=== PATIENT | female | born 1955 | race Caucasian/White ===

== ENCOUNTER 2020-06-20 09:27 | Emergency (ER) | payer MEDICARE, MEDICAID, SELFPAY ==
[2020-06-20 09:20] VITALS: BP 139/98; PULSE 64; RESP 16; TEMP 36.1; O2SAT 94
[2020-06-20 09:34] VITALS: PULSE 63
--- NOTE | 2020-06-20 09:43 | ECG_ITS ---
Measurements Intervals [place] Rate: 63 P: 265 MD: 160 QRS: 68 QRSD: 126 T: 18 QT: 443 QTc: 456 Interpretive Statements SINUS OR ECTOPIC ATRIAL RHYTHM WITH SINUS ARRHYTHMIA WITH FIRST DEGREE AV BLOCK INTRAVENTRICULAR CONDUCTION DELAY BORDERLINE ST-T WAVE ABNORMALITY- ANT/INF LEADS BASELINE ARTIFACT- I, II, AVR, AVF, V2-V3 ABNORMAL ECG Electronically Signed On 06-20-2020 10:16:35 CDT by Dexter Nguyen D.O.
[2020-06-20 09:51] VITALS: BP 125/87; PULSE 60; RESP 16; O2SAT 94
--- NOTE | 2020-06-20 09:52 | ED.WEAKNESS ---
HPI - Weakness General Chief complaint: Weakness Stated complaint: weakness x1 month Time Seen by Provider: 06/20/20 09:45 Source: patient Mode of arrival: EMS Limitations: no limitations History of Present Illness HPI Narrative: This patient is a 65 year old female who presents for evaluation of weakness. Patient states for the past 1 month she has had no appetite and decrease desire to do anything. She states that she is feeling weak and tired. She is able to drink a couple of ensures and eat a bologna sandwich daily. She denies chest pain, cough, fever, abdominal pain, nausea, vomiting or diarhea. She has no urinary symptoms. She states she experienced something like this last year and she was diagnosed with depression. She was prescribed Prozac and that helped her symptoms. She stopped taking the prozac . She has an appointment with PCP in 3 weeks. Complaint: generalized weakness Related Data Home Medications Medication Instructions Recorded Confirmed flecainide 100 mg tablet 100 mg PO Q12H 01/13/20 nifedipine 30 mg tablet,extended 30 mg PO DAILY 01/13/20 release diltiazem HCl [DILT-XR] 240 mg PO DAILY 06/20/20 metoclopramide HCl 10 mg PO BID 06/20/20 omeprazole 40 mg PO DAILY 06/20/20 warfarin [Jantoven] 2 mg PO DAILY 06/20/20 Allergies Allergy/AdvReac Type Severity Reaction Status Date / Time cephalexin Allergy Severe SWELLING, Verified 05/03/19 11:11 HYPOTENSION amoxicillin Allergy Unknown Swelling Verified 05/03/19 11:11 Review of Systems Review of Systems: All systems reviewed & are unremarkable except as noted in HPI and below Constitutional: Constitutional: Denies chills, Reports fatigue, Denies fever(s) and Reports weakness Cardiovascular: Cardiovascular: Denies chest pain, Denies rapid heart rate and Denies slow heart rate Respiratory: Respiratory: Denies cough and Denies dyspnea Gastrointestinal: Gastrointestinal: Denies abdominal pain, Denies constipation, Denies diarrhea, Denies nausea and Denies vomiting Genitourinary: Genitourinary: Denies hematuria, Denies nocturia, Denies dysuria and Denies flank pain Musculoskeletal: Musculoskeletal: Denies back pain [facility] Past Medical History Medical History (Updated 06/20/20 @ 11:01 by Eun Dale MD) Atrial fibrillation CVA (cerebral vascular accident) Hypertension Surgical History Surgical History (Updated 01/13/20 @ 14:58 by Erma Huff CMA) H/O tubal ligation Social History Social History (Updated 01/13/20 @ 14:59 by Erma Huff CMA) Smoking status: Never smoker Alcohol intake: never Gender identity (if verbalized by the patient): Female Exam Const: General: no acute distress and alert Nutritional Appearance: obese Orientation/consciousness: patient oriented x3 HENMT: Head: normocephalic and atraumatic Mouth: Yes Normal oral and palatal mucosa present, Yes lip normal and Yes oropharynx normal Throat: posterior oropharynx normal and uvula midline Eyes: Pupils: Equal, round and reactive pupils present EOM: EOMs intact bilaterally Neck: Other: posterior neck soft tissue that appears to be lipoma Chest: Chest palpation & inspection: normal inspection of the chest Resp: Effort & Inspection: normal respiratory effort and no retractions Auscultation: clear to auscultation bilaterally Cardio: Rate: regular rate Rhythm: regular rhythm Heart sounds: no murmurs GI: GI Palp: Yes Soft to palpation, No Tenderness to palpation present (GI), No Guarding due to palpation present (GI), No Rigid due to palpation and No Hernia present Back/Spine/Pelvis: Back: no CVA tenderness Skin: General skin exam: normal color Rashes: no rashes Neuro: General: patient oriented x3 and moves all extremities Extrem: General: normal to inspection Psych: Mental Status: mental status grossly normal Affect: normal affect Course Reevaluation(s) Reevaluation #1: I Discussed with patient she has been
[2020-06-20 10:18] LABS: Basophils Absolute Auto 0.1 K/mm3 (0.0-0.1); Basophils Percent Auto 0.7 % (0.2-1.2); Eosinophils Absolute Auto 0.1 K/mm3 (0-0.3); Eosinophils Percent Auto 0.9 % (0-4.4); Hemoglobin 15.8 g/dL (12.0-15.0); Immature Granulocyte Absolute 0.03 K/mm3 (0.00-0.031); Immature Granulocyte Percent A 0.3 % (0-0.5); Lymphocytes Absolute Auto 2.76 K/mm3 (0.9-3.2); Lymphocytes Percent Auto 24.9 % (18.3-44.2); Mean Corpuscular HGB Conc 32.2 g/dl (32-36); Mean Corpuscular Hemoglobin 27.8 pg (26-34); Mean Corpuscular Volume 86.3 fl (80-100); Monocytes Absolute Auto 0.9 K/mm3 (0.1-0.6); Monocytes Percent Auto 8.5 % (2.6-8.5); Neutrophils Absolute Auto 7.2 K/mm3 (1.3-6.7); Neutrophils Percent Auto 64.7 % (45.5-73.1); Platelet Count Result 321 k/mm3 (150-375); Red Blood Count 5.68 M/mm3 (4.2-5.4); Red Cell Distribution Width 14.5 % (11.5-14.5); White Blood Count 11.1 K/mm3 (4.5-10.0)
[2020-06-20 10:27] LABS: Add Urine Microscopic? YES; Appearance Urine Cloudy (Clear); Bacteria Urine Trace /hpf; Bilirubin Urine 1+ (Negative); Blood Urine Negative (Negative); Calcium Oxalate Crystals Urine Many /hpf; Color Urine Amber (Yellow); Glucose Urine UA 1+ mg/dL (Negative); Hyaline Casts Urine 50+ /lpf; Ketones Urine Negative (Negative); Leukocyte Esterase Ur 1+ LEU/UL (Negative); Mucus Urine Heavy /lpf; Nitrate Urine Negative (Negative); Protein Urine 2+ mg/dL (Negative); RBC Urine 0-2 /hpf (0-2); Specific Grav Ur 1.027 (1.001-1.035); Squamous Epithelial Cell Urine Many /hpf (Few); WBC Urine 51-75 /hpf
[2020-06-20 10:29] LABS: INR 2.2
[2020-06-20 10:43] LABS: Alanine Aminotransferase 31 U/L (4-35); Albumin Level 3.7 g/dL (3.5-5.1); Alkaline Phosphatase 96 U/L (38-126); Anion Gap 11 mmol/L (8-16); Aspartate Amino Transferase 32 U/L (14-36); Bilirubin,Total 0.5 mg/dL (0.2-1.3); Blood Urea Nitrogen 14 mg/dL (7-17); Calcium 9.1 mg/dL (8.4-10.2); Carbon Dioxide 23 mmol/L (22-30); Chloride 104 mmol/L (98-107); Estimated CRCL calculation 66 ml/min; Estimated Glomerular Filt Rate 55; Glucose 134 mg/dL (65-105); Potassium 3.5 mmol/L (3.4-5.0); Sodium 138 mmol/L (137-145)
== END 2020-06-20 11:18 | disposition home or self-care (01) ==
PROVIDERS: Emergency Provider General Practice; PCP Internal Medicine
DX: N39.0 Urinary tract infection, site not specified (principal); R53.83 Other fatigue; I48.91 Unspecified atrial fibrillation; Z79.01 Long term (current) use of anticoagulants; Z86.73 Personal history of transient ischemic attack (TIA), and cerebral infarction without residual deficits; I10 Essential (primary) hypertension; I45.9 Conduction disorder, unspecified; R94.31 Abnormal electrocardiogram [ECG] [EKG]
CPT/HCPCS: 36415; 80053; 81001; 85025; 85610; 85730; 87077; 87086; 87088; 87186; 93005; 99283

== ENCOUNTER 2025-07-08 08:09 | Outpatient (CLI) | payer MEDICARE, MEDICAID, SELFPAY ==
--- OUTSIDE RECORDS SUMMARY | 2025-07-08 08:15 | XMS_ITS | Clinical Summary ---
Author Organization [facility] Address [facility] [place] [address] Care Team Providers Care Doll Eye Setter Name Role Phone Richie Cohen MD Primary Care Provider + [phone] Allergies Active Allergy Reactions Criticality Noted Date Comments Amoxicillin Anaphylaxis High 05/16/2019 Cephalexin Syncope,Other (See comments) High Reaction: Syncope/Low BP, Throat Swelling, Medications albuterol (PROVENTIL,SHAMIR DONNELL) 2.5 mg /3 mL (0.083 %) nebulizer solution Take 2.5 mg by nebulization every 6 (six) hours as needed for wheezing Active baclofen (LIORESAL) 10 mg tablet Take 10 mg by mouth 3 (three) times a day Active benzonatate (TESSALON) 100 mg capsuleIndicatio ns:Cough Take 100 mg by mouth 3 (three) times a day as needed for cough Active cyclobenzaprine (FLEXERIL) 5 mg tablet Take 5 mg by mouth 3 (three) times a day as needed for muscle spasms Active dilTIAZem CD (CARDIZEM CD) 300 mg 24 hr capsule Take 300 mg by mouth daily Active flecainide (TAMBOCOR) 100 mg tablet Take 100 mg by mouth 2 (two) times a day Active losartan (COZAAR) 100 mg tablet Take 100 mg by mouth daily Active omeprazole (PriLOSEC) 40 mg capsule Take 40 mg by mouth daily Active pravastatin (PRAVACHOL) 40 mg tablet Take 40 mg by mouth daily Active beclomethasone (QVAR) 40 mcg/actuation inhaler Inhale 2 puffs 2 (two) times a day Rinse mouth with water after use. Do not swallow. Active metoclopramide (REGLAN) 10 mg tablet Take 10 mg by mouth 4 (four) times a day Active albuterol HFA (PROVENTIL HFA,VENTOLIN HFA,PROAIR HFA) 90 mcg/actuation inhaler Inhale 2 puffs every 6 (six) hours as needed for wheezing Active furosemide (LASIX) 40 mg tablet Take 1 tablet (40 mg total) by mouth daily Take only NEEDED for swelling 30 tablet 9 Active warfarin (COUMADIN) 4 mg tabletIndication s:atrial fibrillation Take 1 tablet (4 mg total) by mouth 3 (three) times a week TAKE Monday ONLY 12 tablet 9 Active warfarin (COUMADIN) 2 mg tabletIndication s:atrial fibrillation Take 1 tablet (2 mg total) by mouth 4 (four) times a week TAKE Monday ONLY 16 tablet 9 Active FLUoxetine (PROzac) 10 mg capsuleIndicatio ns:Generalized Anxiety Disorder Take 1 tablet/capsule (10 mg total) by mouth daily 30 tablet/capsu le 9 Active metoprolol XL (TOPROL-XL) 50 mg 24 hr tablet Take 1 tablet (50 mg total) by mouth daily 30 tablet 11 9 Active dilTIAZem XR (dilTIAZem CD) 180 mg 24 hr capsule Take 1 capsule (180 mg total) by mouth 2 (two) times a day Active lactulose solution 10 gram/15mL Active lidocaine (LMX) 4 % cream APPLY 1 APPLICATION(S) 3 TIMES A DAY BY TOPICAL ROUTE DIRECTED FOR 30 DAYS Active magnesium oxide (MAG-OX) 400 mg (241.3 mg elemental magnesium) tablet Take 1 tablet (400 mg total) by mouth 2 (two) times a day Active hydroCHLOROthiaz della (HYDRODIURIL) 25 mg tablet Take 1 tablet (25 mg total) by mouth daily Active HYDROcodone-acet aminophen (NORCO) 5-325 mg per tablet Take by mouth every 6 (six) hours as needed Active hyaluronate (ORTHOVISC) 30 mg/2 mL injection Injections given in the office by the doctor. Active fluticasone propionate (FLONASE) 50 mcg/actuation nasal spray SPRAY 1 SPRAY EVERY DAY INTO NOSE DIRECTED FOR 30 DAYS Active clonazePAM (KlonoPIN) 0.5 mg tablet Take 1 tablet (0.5 mg total) by mouth daily as needed Active docusate sodium (COLACE) 100 mg capsule Take by mouth daily as needed Active busPIRone (BUSPAR) 10 mg tablet Take by mouth every 8 (eight) hours as needed Active apixaban (Eliquis) 5 mg tablet Take 1 tablet (5 mg total) by mouth 2 (two) times a day Active calcium carbonate-vitami n D3 1500 mg (600 mg elemental) -200 units per tablet Calcium 600 + D(3) 600 mg (1,500 mg)-200 unit tablet 8 Active cetirizine (ZyrTEC) 10 mg tablet Active citalopram (CeleXA) 20 mg tablet Take 1 tablet every day by oral route as directed for 30 days. 1 Active LORazepam (ATIVAN) 1 mg tablet Active loratadine (CLARITIN) 10 mg tablet Active meclizine (ANTIVERT) 25 mg tablet Take 1 tablet (25 mg total) by mouth daily as needed Active metOLazone (ZAROXOLYN) 2.5 mg tablet metolazone 2.5 mg tablet Active mometasone (Nasonex) 50 mcg/actuation nasal spray [place] 2 sprays every day by intranasal route as needed for 30 days. 5 Active NIFEdipine (NIFEdipine XL) 30 mg 24 hr tablet Take 1 tablet (30 mg total) by mouth daily Active nystatin cream Activ e pantoprazole DR (PROTONIX) 40 mg EC tablet Take 1 tablet (40 mg total) by mouth daily Active predniSONE (DELTASONE) 10 mg tablet Prednisone 40 mg X 3 days, 30 X 3 days, 20 X 3 days 10 X 3 days then off Active umeclidinium-chad anteroL (ANORO ELLIPTA) 62.5-25 mcg/actuation blister with device Anoro Ellipta 62.5 mcg-25 mcg/actuation powder for inhalation 8 Active Active Problems Problem Noted Date Diagnosed Date Abnormal finding on mammography 03/05/2025 Anxiety 03/05/2025 Joint pain 03/05/2025 Macular degeneration 03/05/2025 Metabolic syndrome X 03/05/2025 Neck pain 03/05/2025 Pruritic disorder 03/05/2025 Rosacea 03/05/2025 Seasonal allergies 03/05/2025 Symptoms involving urinary system 03/05/2025 Hypertensive disorder 03/05/2025 Morbid obesity 03/05/2025 Skin abnormalities 03/05/2025 Kidney stone 03/07/2023 Asthma 03/24/2021 Acute sinusitis 02/21/2020 Allergic rhinitis 06/24/2019 Candidiasis of mouth 06/24/2019 Cough 06/24/2019 Chronic atrial fibrillation 06/24/2019 Failure to thrive in adult 05/17/2019 Assessment & Plan (05/17/2019 1:11 PM CDT): -Claims to have had 25lb weight loss in 1mo due to poor appetite and increased sleep -Labs mostly unremarkable, some metabolic acidosis -OSH EGD, brain MRI, Echo, CT WNL -PT OT consulted -Nutrition consulted Severe malnutrition 05/17/2019 Assessment & Plan (05/17/2019 1:12 PM CDT): Nutrition consulted, see above. Ensure added F/u outpatient Anxiety and depression 05/17/2019 Assessment & Plan (05/17/2019 1:17 PM CDT): -Endorses decreased energy, increased need for sleep, frequent distressing feelings of anxiety, decreased appetite, denies thoughts of self harm -Recent loss of stepmother -Open to treating anxiety, start fluoxetine 10mg, f/u outpatient with PCP HTN (hypertension) 05/17/2019 Assessment & Plan (05/17/2019 1:18 PM CDT): Continue home cozaar 100mg, lasix 40mg, diltiazem, metop Incomplete right bundle bran ch block (RBBB) determined by electrocardiography 05/16/2019 Chronic atrial fibrillation 05/16/2019 Assessment & Plan (05/17/2019 1:11 PM CDT): -per patient and med list, on Metop XL 50mg qd, Dilt CD 300mg qd, flecainide 100mg BID -tele -on warfarin, 4mg M/W/F, 2mg T/Th/S/S Morbid obesity 05/16/2019 Assessment & Plan (05/17/2019 1:11 PM CDT): Nutrition consulted Obstructive sleep apnea syndrome 05/06/2019 Gastroesophageal reflux disease 03/21/2019 Gastroesophageal reflux disease 03/21/2019 Breast erythema 11/29/2018 Anemia 02/19/2018 Atypical chest pain 02/19/2018 Increased thirst 02/19/2018 BMI 50.0-59.9, adult 11/02/2017 Chronic obstructive lung disease 11/02/2017 Dyspnea on exertion 11/02/2017 Disorder of breast 10/20/2014 Surgical History Surgery Date Site/Laterality Comments TUBAL LIGATION Medical History Medical History Date Comments Stroke (HCC) Hypertension A-fib (HCC) Social History Tobacco Use Types Packs/Day Years Used Date Smoking Tobacco: Never Smokeless Tobacco: Never Tobacco Cessation:Counseling Given: Not Answered Personal Safety Answer Date Recorded Have you ever been in or are you currently in a harmful physical or emotional relationship or is someone making you feel afraid or unsafe? Denies 09/14/2023 Comments No Sex and Gender Information Value Date Recorded Sex Assigned at Not on file Legal Sex Female 10:09 PM [employer] Gender Identity Not on file Sexual Orientation Not on file Obstetrics History Last Filed Vital Signs Vital Sign Reading Time Taken Comments Blood Pressure 163/85 03/05/2025 11:00 AM CDT Pulse 108 03/05/2025 11:00 AM CDT Temperature 36.2 C (97.2 F) 03/05/2025 11:00 AM CDT Respiratory Rate 18 03/05/2025 11:0 0 AM CDT Oxygen Saturation 98% 03/05/2025 11: 00 AM CDT Inhaled Oxygen Concentration - - Weight 147.1 kg (324 lb 6.4 oz) 025 11:00 AM CDT Height 145.2 cm (4' 9.17) 03/05/2025 1 1:00 AM CDT Body Mass Index 69.79 03/05/2025 11:00 AM CDT Plan of Treatment Health Maintenance Due Date Last Done Comments Breast Cancer Screening-Mammogram 1954 Colon Cancer Screening-Colonoscopy 1954 Depression Screening 1954 Fall Risk Assessment 1954 Hepatitis C Screening 1954 Osteoporosis Screening-Bone Density Scan 1954 DTaP/Tdap/Td Vaccine (1 - Tdap) 1965 Hepatitis B Screening 1972 Pneumococcal vaccine 65+ (1 of 2 - PCV) 1973 Zoster Vaccine (1 of 2) 2004 Well Visit 65+ 2019 Influenza Vaccine (#1) 2025 Insurance [facility] MEDICARE IDPA IDPA MEDICARE Advance Directives For more information, please contact: [phone] * Full Code (Latest Code Status on File) Date Activated Date Inactivated Comments 05/17/2019 12:35 AM 05/17/2019 8:36 PM Care Teams Doll Eye Setter Relationship Specialty Start Date End Date Richie Cohen MD PCP - General Internal Medicine 02/18/25
--- NOTE | 2025-07-08 09:00 | NEURO_ITS ---
Impression: # Complains of numbness of lower extremities ? # History of neck/spine problems ? 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 ? # Higher involvement cannot be ruled out. Nerve Conduction Studies ?Stim Site NR Peak (ms) P-T Amp (?V) Site1 Site2 Delta-P (ms) Dist (cm) Kp (m/s) Left Sup Fibular Anti Sensory (Ant Lat Mall)??? NO RESPONSE 14 cm NR 14 cm Ant Lat Mall 16.0 Right Sup Fibular Anti Sensory (Ant Lat Mall)??? NO RESPONSE 14 cm NR 14 cm Ant Lat Mall 16.0 Left Sural Anti Sensory (Lat Mall)??? NO RESPONSE Calf NR Calf Lat Mall 16.0 Right Sural Anti Sensory (Lat Mall)??? NO RESPONSE Calf NR Calf Lat Mall 16.0 ?Stim Site NR Onset (ms) O-P Amp (mV) Site1 Site2 Delta-0 (ms) Dist (cm) Kp (m/s) Left Peroneal Motor (Vastus Med) Ankle ? 4.1 0.6 Popit Ankle 9.4 39.0 41 Popit ? 13.5 0.2 Right Peroneal Motor (Vastus Med) Ankle ? 3.9 0.3 Popit Ankle 8.2 38.0 46 Popit ? 12.1 0.1 Left Tibial Motor (Abd Altamirano Brev) Ankle ? 4.4 2.5 Knee Ankle 10.1 41.0 41 Knee ? 14.5 0.6 Right Tibial Motor (Abd Altamirano Brev) Ankle ? 4.5 0.8 Knee Ankle 9.6 39.0 41 Knee ? 14.1 0.2 F Wave Studies ?NR F-Lat (ms) L-R F-Lat (ms) Left Peroneal (Mrkrs) (EDB)??? DISPERSED RESPONSE NR Right Peroneal (Mrkrs) (EDB)??? NO RESPONSE NR Left Tibial (Mrkrs) (Abd Hallucis) ? 58.13 Right Tibial (Mrkrs) (Abd Hallucis)??? DISPERSED RESPONSE NR Electromyography ?Side Muscle Nerve Root Ins Act Fibs Amp Dur Recrt Comment Right AntTibialis Dp Br Fibular L4-5 Nml Nml Decr Nml +1 Left AntTibialis Dp Br Fibular L4-5 Nml Nml Decr Nml +1 Right Ext Dig Brev Dp Br Fibular L5, S1 Nml Nml Decr >12ms +1 Left Ext Dig Brev Dp Br Fibular L5, S1 Nml Nml Decr >12ms +1 Right Fibularis Long Sup Br Fibular L5-S1 Nml Nml Decr Nml +1 Left Fibularis Long Sup Br Fibular L5-S1 Nml Nml Decr Nml +1 Right Flex Dig Long Tibial L5-S2 Nml Nml Decr Nml +1 Left Flex Dig Long Tibial L5-S2 Nml Nml Decr Nml +1 Right Gastroc Tibial S1-2 Nml Nml Decr Nml +1 Left Gastroc Tibial S1-2 Nml Nml Decr Nml +1 Right QuadratusFem QuadFemoris L4-5, S1 Nml Nml Nml Nml +1 Left QuadratusFem QuadFemoris L4-5, S1 Nml Nml Nml Nml Nml
== END 2025-07-08 08:10 | disposition home or self-care (01) ==
PROVIDERS: PCP Internal Medicine; Visit Provider Internal Medicine
DX: R20.0 Anesthesia of skin (principal); G62.89 Other specified polyneuropathies; Z87.898 Personal history of other specified conditions
CPT/HCPCS: 95886; 95910